=== PATIENT | female | born 1960 | race Caucasian/White ===

== ENCOUNTER 2023-05-18 01:34 | Observation (INO) ==
--- OUTSIDE RECORDS SUMMARY | 2023-05-18 01:40 | External Medical Summary | Continuity of Care Document ---
Author Name Unknown Organization [address] Address [address] [place], [place] [id number] Care Team Providers Care Information Technology Teacher Name Role Phone Patsy Sheikh Primary Care Physician [phone] Encounter [facility] [id number] Date(s): 12/17/22 - 12/17/[address] [place] [facility] [address] [address] [phone] Encounter Diagnosis Vaginal irritation(Discharge Diagnosis) - 12/17/22 Discharge Disposition: Home or Self Care Attending Physician: KEN Sheikh Tara Allergies, Adverse Reactions, Alerts No Known Medication Allergies Assessment and Plan Extracted from: Title:irritation Author:KEN Sheikh Tara Date: 1.Vaginal irritation Acute/Chronic: chronic Goal:Resolution/ control Status:stable/controlled Data: records/pt report Plan: Will try topical steroid. Also discussed using a vaginal lubricant. If this is not effective, we did discuss the use of vaginal estrogen cream. Discussed pros and cons. Not generally absorbed systemically. She will let me know. time spent reviewing chart, face to face visit, ordersand documentation:36 min Immunizations Given and Recorded Vaccine Date Status Refusal Reason zoster vaccine, inactivated 07/20/20 Given zoster vaccine, inactivated 1 05/11/20 Given influenza virus vaccine, inactivated 03/06/20 Give n influenza virus vaccine, inactivated 02/14/19 Cassius rded tetanus/diphtheria/pertuss, acel (Tdap) 10/03/08 R ecorded 1Result Comment: [email or web address] 02/21/22 Medications Calcium 600+D Start: 12/20/14 15:49:00, See Instructions, 1 tab po BID Start Date: 12/20/14 Status: Ordered ciclopirox 8% topical solution Start: 05/08/22 9:18:00 EST, See Instructions, Disp# 6.6 mL, Refills: 4, APPLY TOPICALLY DAILY FOR 24 WEEKS., Pharmacy: [id number] Start Date: 05/08/22 Status: Ordered clobetasol 0.05% topical ointment Start: 12/17/22 11:57:00 EDT, 1 appl, topical, bid, Disp# 60 g, Pharmacy: [id number] Start Date: 12/17/22 Status: Ordered fluocinolone 0.01% topical oil APPLY 1 APPLICATION TOPICALLY TWO TIMES DAILY FOR 14 DAYS Start Date: 11/06/22 Status: Ordered Ocuvite Lutein Start: 12/28/15 9:51:00, See Instructions, 1 tablet daily Start Date: 12/28/15 Status: Ordered Mental Status 12/17/22 Barriers to Learning one year None evide nt Mandatory Health Literacy Documentation Yes Health Literacy Communication Barriers N ever Primary Language Malian Problem List Condition Confirmation Course Effective Dates Status Health St atus Informant Nevus Confirmed Active Eczema Confirmed Active Inflamed seborrheic keratosis Confirmed Active Tinea unguium Confirmed Active Diagnosis Diagnosis Type Effective Dates Health Status Clinical Service Informant Vaginal irritation Discharge Diagnosis 12/17/22 Procedures Procedure Date Related Diagnosis Body Site Status Mammogram - screening 1 06/11/22 C ompleted Mammogram - screening 2 06/07/21 C ompleted Mammogram 3 06/01/20 Completed Mammogram - screening 4 05/19/19 C ompleted PAP test date 5 05/19/19 Completed Mammogram 6 05/17/18 Completed Mammogram - screening 7 03/27/17 C ompleted Colonoscopy 8, 9 04/14/16 Complete d Mammogram Right Diagnostic 10 04/07/16 Completed Mammogram 11 03/21/16 Completed Mammogram 12 03/15/15 Completed LASIK 09/2014 Completed Mammogram 13 01/06/14 Completed PAP test date 14 12/19/13 Complete d Ultrasound--left breast 15 12/22/12 Completed Colonoscopy 16 12/08/09 Completed Bone density scan 10/15/09 Complet ed X-ray of left foot 17 01/11/06 Com pleted Breast biopsy sample--right breast 18 Completed Hemorrhoidectomy 19 Compl eted 1There is no mammographic evidence of malignancy. A 1 year screening mammogram is recommended. (06/12/2023) 2There is no mammographic evidence of malignancy. A 1 year screening mammogram is recommended. 3bilateral digital screening mammogram tomosynthesis with synthetic 2d with Cad 06/01/2020 impression there is no mammographic evidence of malignancy. A one year screeing mammogram is recommended 06/02/2021 4Impression: There is no mammography evidence of malignancy. A 1 year screening mammogram is recommended (05/19/2020). The patient will receive written notification of the results. 5HPV not detected Negative for intraepithelia lesion or malignancy. Atrophic pattern, predominantly parabasal cells. 6IMPRESSION: ACR BI-RADS CATEGORY 1: NEGATIVE There is no mammographic evidence of malignancy. A 1 year screening mammogram is recommended. (05/18/19). 7Impression: There is no mammographic evidence of malignancy. A 1 year screening mammogram is recommended. The patient will receive written notification of the results. 8hyperplastic/inflammatory ( theese polyps do not turn into cancer nor do they increase your risk ofconcer, therefore, require only routine colon cancer screening every 10 years. Colonoscopy in 10 years for colon cancer screening. 9one 3mm polyp in the ascending colon, removed with a cold bx forceps. Resected and retrieved. 10Impression: The clustered punctate and amorphous microcalcifications in the right upper outer posterior breast are unchanged mammographically dating back to at least 2008 and likely stable active 2006 based on prior reports. There is no mammographic evidence of malignancy. Return to annual mammogram screening schedule is recommended. The patient has been verbally notified of the results. 11Cat 0- incomplete- needs additional images. Cluster in the right breast is indeterminate 12No mammographic evidence of malignancy. ! year screening mammogram is recommended. 13Negative for malignancy. 14Diagnosis: negative for intraepithelial lesion or malignancy Atrophy with inflammation (atrophic vaginitis. 15No sonographic evidence of malignancy. 16Due every 5 years. 17Acute comminuted transvers fracture through the distal phalanx of the left great toe. Considered anopen fracture. Bony fragments about the distal phalanx of the left 2nd toe, also most likely crush injury. 18done in 2008 for palpable mass 19Done in 1981 Vital Signs Most recent to oldest [Reference Range]: 1 Height 167.8 cm (12/17/22 11:23 AM) Patient Weight 63.4 kg (12/17/22 11:23 AM) Body Mass Index 22.52 kg/m2 (12/17/22 11:23 AM) Heart Rate 58 bpm (12/17/22 11:23 AM) Respiratory Rate 16 br/min (12/17/22 11:23 AM) Blood Pressure 100/64mmHg (12/17/22 11:23 AM) Cuff Pulse Pressure 36 mmHg (12/17/22 11:23 AM) Social History Social History Type Response Smoking Status Never smoked cigaret yaakov Sex Female Primary care Note * KEN Sheikh Tara: PERFORM Event Display: FCM Outpt Note Authored Date: [id number] Chief Complaint possible yeast infection that she has been cycling with the last couple of weeks (perinium area) itching, burning History of Present Illness For the last several weeks the pt has had itching/burning in the perineal region. She denies vaginal discharge. No recent abx. No urinary incontinence. Denies new soaps, lotions, detergents, topical products. Has not used any otc products. She does not have penetrating sexual intercourse due to discomfort. Review of Systems Constitutional: No fever, chills, sweats Pulmonary: No shortness of breath, dyspnea with exertion, cough, hemoptysis, wheezing, chest pain. Cardiovascular: No chest pain, palpitations, syncope, edema, cyanosis, claudication, orthopnea. Fingerprint Expert:as per HPI Physical Exam Vitals & Measurements HR:58(Monitored) RR:16 BP:100/64 SpO2:96% HT:167.8cm WT:63.400kg(Dosing) WT:63.4kg BMI:22.52 PHQ2 Data(Data Documented on:12/17/2022 11:23) Emotional health assessment NEGATIVE head- normocephalic Pulmonary- chest expansion symmetric CV (cardiovascular)- RRR Fingerprint Expert -Mild erythema at the base of the vaginal orifice. No vaginal discharge noted. Radiation Oncology Therapist Priti Easton LPN present. Neuro:Alert, Oriented. Assessment/Plan 1.Vaginal irritation Acute/Chronic: chronic Goal:Resolution/ control Status:stable/controlled Data: records/pt report Plan:Will try topical steroid. Also discussed using a vaginal lubricant. If this is not effective, we did discuss the use of vaginal estrogen cream. Discussed pros and cons. Not generally absorbed systemically. She will let me know. time spent reviewing chart, face to face visit, ordersand documentation:36 min Problem List/Past Medical History Ongoing Eczema Inflamed seborrheic keratosis Nevus Tinea unguium Historical Cerumen impaction Dyspareunia Palpitations Procedure/Surgical History Mammogram - screening (06/11/2022)Mammogram - screening (06/07/2021)Mammogram (06/01/2020)PAP test date (05/19/2019)Mammogram - screening (05/19/2019)Mammogram (05/17/2018)Mammogram - screening (03/27/2017)Colonoscopy (04/14/2016)Mammogram Right Diagnostic (04/07/2016)Mammogram (03/21/2016)Mammogram (03/15/2015)LASIK (09/2014)Mammogram (01/06/2014)PAP test date (12/19/2013)Ultrasound--left breast (12/22/2012)Colonoscopy (12/08/2009)Bone densityscan (10/15/2009)X-ray of left foot (01/11/2006)HemorrhoidectomyBreast biopsy sample--right breast Medications calcium-vitamin D(Calcium 600+D), See Instructions ciclopirox topical(ciclopirox 8% topical solution), See Instructions, 4 refills clobetasol topical(clobetasol 0.05% topical ointment), 1 appl, topical, bid fluocinolone topical(fluocinolone 0.01% topical oil) multivitamin with minerals(Ocuvite Lutein), See Instructions Allergies No Known Medication Allergies Social History Smoking Status Never smoked cigarettes Alcohol Use:Current Type:Beer, Wine Frequency:3-5 times per week Employment/School Status:Retired Home/Environment Lives with:Spouse Feels unsafe at home:No Substance Abuse - Denies Substance Abuse Tobacco - Denies Tobacco Use Family History Brain aneurysm: Mother. Glaucoma: Mother. Heart attack: Father. Hypertension...: Mother. Macular degeneration...: Mother. Thyroid disease: Mother. Health Status Family Member(s) Family Member(s) Relationship: Father, Age: Unknown Immunizations Vaccine Date Status zoster vaccine, inactivated 07/20/2020 Given zoster vaccine, inactivated 05/11/2020 Given Comments : [email or web address] 02/21/22 influenza virus vaccine, inactivated 03/06/2020 Given influenza virus vaccine, inactivated 02/14/2019 Recorded tetanus/diphtheria/pertuss, acel (Tdap) 10/03/2008 Recorded Recommendations Health Maintenance Pending(in the next year) OverDue Cervical Cancer Screening due05/18/22and every 3year Due Adult Influenza Vaccine due11/22/22and every 1year Adult COVID-19 Vaccination due12/17/22Unknown Frequency Adult Tdap/Td Vaccine due12/17/22Unknown Frequency Due In Future Body Mass Index not due until12/17/23and every 1year Satisfied(in the past 1 year) Satisfied Body Mass Index on12/17/22.Satisfied by FALGUNI Crespo Bobbi Electronic Signature on File Electronically Reviewed/Signed by: KEN Washington Author Signature Dt/Tm:12/17/2022 12:44 PM Department of Family Medicine TB Patient Care team information Care Team Personnel Name: KEN Sheikh Tara Position: Nurse Pract - Family Med Member Role: Primary Care Provider Address: Address: [address] [place] [address], [place] [address] Care Team Related Persons Name: CRISTINA MILLS Address: home [address] [place] [address], [place] [phone] Name: MARIBEL FITCH Address: home No Address Provided
--- OUTSIDE RECORDS SUMMARY | 2023-05-18 01:40 | External Medical Summary | Continuity of Care Document ---
Author Name Unknown Organization [address] Address [address] [place], [place] [id number] Care Team Providers Care Home Health Billing Specialist Name Role Phone Patsy Sheikh Primary Care Physician [phone] [id number] Date(s): 12/17/22 - 12/17/[address] [place] [facility] [address] [address] [phone] Encounter Diagnosis Vaginal irritation(Discharge Diagnosis) - 12/17/22 [...] APPLY TOPICALLY DAILY FOR 24 WEEKS., Pharmacy: [id number] Start Date: 05/08/22 Status: Ordered clobetasol 0.05% topical ointment Start: 12/17/22 11:57:00 EDT, 1 appl, topical, bid, Disp# 60 g, Pharmacy: [id number] Start Date: 12/17/22 Status: [...] Literacy Communication Barriers N ever Primary Language Vietnamese Problem List Condition Confirmation Course Effective Dates [...] Event Display: FCM Outpt Note Authored Date: [id number] Chief Complaint possible yeast infection that she [...] pain, palpitations, syncope, edema, cyanosis, claudication, orthopnea. Carbon Printer:as per HPI Physical Exam Vitals & Measurements HR:58(Monitored) RR:16 BP:100/64 SpO2:96% HT:167.8cm WT:63.400kg(Dosing) WT:63.4kg BMI:22.52 PHQ2 Data(Data Documented on:12/17/2022 11:23) Emotional health assessment NEGATIVE head- normocephalic Pulmonary- chest expansion symmetric CV (cardiovascular)- RRR Carbon Printer -Mild erythema at the base of the vaginal orifice. No vaginal discharge noted. Independent Contractor Priti Easton LPN present. Neuro:Alert, Oriented. Assessment/Plan [...] Member Role: Primary Care Provider Address: Address: [address] [place] [address], [place] [address] Care Team Related Persons Name: CRISTINA MILLS Address: home [address] [place] [address], [place] [phone] Name: MARIBEL FITCH Address: home No Address Provided
[2023-05-18 02:28] LABS: Appearance Urine Clear (Clear); Bacteria Urine Automated Negative (Negative); Bilirubin Urine Negative (Negative); Blood Urine 1+ (Negative); Cast Urine Automated 0 /lpf (0-5); Color Urine Yellow; Glucose Urine UA Negative (Negative); Ketones Urine Negative (Negative); Leukocyte Esterase Urine 2+ (Negative); Nitrite Urine Negative (Negative); Protein Urine Negative (Negative); Specific Gravity Urine 1.012 (1.000-1.030); Urobilinogen Urine Negative (Negative); pH Urine 7.5 (4.5-7.5)
[2023-05-18 02:30] LABS: Basophils # (auto) 0.04 K/uL (0.00-0.20); Basophils % (auto) 0.4 %; Eosinophils # (auto) 0.08 K/uL (0.00-0.50); Eosinophils % (auto) 0.7 %; Hemoglobin 14.5 g/dl (12.0-16.0); Immature Granulocytes # (auto) 0.03 K/uL (0.01-0.20); Immature Granulocytes % (auto) 0.3 %; Lymphocytes # (auto) 1.41 K/uL (1.20-3.40); Lymphocytes % (auto) 12.5 %; Mean Corpuscular Hemoglobin 31.9 pg (25.0-34.0); Mean Corpuscular Volume 96.9 fL (80.0-100.0); Mean Platelet Volume 11.8 fL (9.4-12.4); Monocytes # (auto) 0.92 K/uL (0.11-0.59); Monocytes % (auto) 8.1 %; Neutrophils # (auto) 8.81 K/uL (1.40-6.50); Platelet Count 253 K/uL (130-400); RDW Coefficient of Variation 12.4 % (11.5-14.5); RDW Standard Deviation 44.4 fL (36.4-46.3); Red Blood Count 4.54 M/uL (4.20-5.40); White Blood Count 11.29 K/ul (4.8-10.8)
[2023-05-18 02:40] LABS: Pregnancy Test, Serum Negative (Negative)
[2023-05-18 02:45] LABS: Albumin Globulin Ratio 1.5 (0.9-2); Albumin Level 4.6 gm/dl (3.4-5.0); BUN Creatinine Ratio 17.5 (10-20); Bilirubin,Total 0.4 mg/dl (0.2-1.0); Calcium 9.4 mg/dl (8.6-10.3); Creatinine Clr Calc Pharmacy 69.8 ml/min; Est GFR (African American) 90.9 ml/min; Est GFR (Non-African American) 78.5 ml/min; Potassium 3.8 mmol/L (3.5-5.1); Total Protein 7.6 gm/dl (6.0-8.3)
[2023-05-18] MEDS ORDERED: OPTIRAY 320 500ml IV ONE (03:26)
--- NOTE | 2023-05-18 04:21 | CT Scan Report ---
Exam(s): CT ABDOMEN + PELVIS With Contrast IV Amt: 89 ml opti 320 EXAM: CT Abdomen and Pelvis With Intravenous Contrast CLINICAL HISTORY: Reason for exam: eval for appy. TECHNIQUE: Axial computed tomography images of the abdomen and pelvis with intravenous contrast. CTDI is 12.47 mGy and DLP is 591.14 mGy-cm. Automated exposure control was utilized for the study. A dose lowering technique was utilized adhering to the principles of ALARA. CONTRAST: Patient received 89 ml opti 320 of IV contrast COMPARISON: No relevant prior studies available. FINDINGS: Lung bases: Unremarkable. No mass. No consolidation. ABDOMEN: Liver: Low-attenuation area in the right hepatic lobe measures 2.5 x 4. 7 cm. Recommend nonemergent abdominal MRI correlation. Gallbladder and bile ducts: Unremarkable. No calcified stones. No ductal dilation. Pancreas: Unremarkable. No mass. No ductal dilation. Spleen: Unremarkable. No splenomegaly. Adrenals: Unremarkable. No mass. Kidneys and ureters: Unremarkable. No hydronephrosis or delayed nephrogram. Stomach and bowel: Moderate fecal retention, correlate for constipation. No small bowel obstruction. No free air. No mucosal thickening. PELVIS: Appendix: Positive for appendicitis, consisting of a distended appendix measuring up to 13 mm with mild periappendiceal fat stranding. No perforation or abscess. Bladder: Unremarkable. No mass. Reproductive: Calcified uterine fibroids measuring up to 2.4 cm. ABDOMEN and PELVIS: Intraperitoneal space: See above. Bones/joints: Degenerative changes of the spine. No acute fracture. No dislocation. Soft tissues: Unremarkable. Vasculature: Atherosclerotic changes of the aorta. No abdominal aortic aneurysm. Lymph nodes: Unremarkable. No enlarged lymph nodes. IMPRESSION: 1. Positive for appendicitis, consisting of a distended appendix measuring up to 13 mm with mild periappendiceal fat stranding. No perforation or abscess. 2. No hydronephrosis or delayed nephrogram. 3. Low-attenuation area in the right hepatic lobe measures 2.5 x 4.7 cm. Recommend nonemergent abdominal MRI correlation. 4. Moderate fecal retention, correlate for constipation. No small bowel obstruction. No free air. Communications: Verify Receipt Electronically signed by: Pradip Mitchell MD 05/18/23 04:20 AM
--- NOTE | 2023-05-18 04:53 | Emergency Department Note ---
Impression & Plan Acute appendicitis To the OR with Dr. Marion ED Provider Note NAME: ANGELY FITCH AGE: 62 SEX: Female INFORMANT: Patient ED PROVIDER(S): Brook Becker DO CHIEF COMPLAINT: Right lower quadrant abdominal pain PLAN: Disposition: Admit to Dr. Marion MEDICAL DECISION MAKING: This is a 62-year-old female patient who presents to the emergency department with right lower quadrant abdominal pain and nausea since 5 PM last evening. The pain worsened throughout the evening to the point she tried to sleep and was unable to. In the emergency department, laboratory studies revealed a mild leukocytosis with a white count of 11.2. H&H were stable. Renal function and electrolytes were normal. Urinalysis did show 1+ blood and 2+ leukocyte esterase with 5-10 white blood cells and red blood cells. The patient did have exquisite tenderness to palpation in the right lower quadrant. She went for CT scan of the abdomen/pelvis which showed acute appendicitis. The patient declined wanting anything for pain. Discussed the case with Dr. Marion who will take her to the OR. Care/management discussed with: Dr. Marion-General surgery Triage Nursing notes: Reviewed and agree with them. Vital Signs: reviewed and unremarkable Chronic Medical/Social Conditions affecting care: None Differential Diagnosis: Appendicitis, UTI, diverticulitis Diagnostics, independently interpreted by me: Cardiac Monitoring: Normal sinus rhythm at a rate of 76 Imaging studies: CT scan of the abdomen/pelvis: See stat rad HPI: 62 year old Female arrives for evaluation of right lower quadrant pain. Patient developed right lower quadrant pain and nausea around 5 PM this evening. She tried having a bowel movement around 10:00 before bed but got no relief. Patient then went to sleep but noted the pain seemed to increase and came to the emergency department for evaluation. PAST MEDICAL HISTORY: None, PAST SURGICAL HISTORY: None, SOCIAL HISTORY: Lives with her , HOME MEDICATIONS: See list ALLERGIES: None VITALS: See Below PHYSICAL EXAMINATION: HEENT: Head - normocephalic and atraumatic. Pupils are equal, round, and reactive to light. Extraocular eye muscles are intact, and sclera are anicteric. Nose - moist nasal mucosa without discharge. Mouth - moist buccal mucosa. Oropharynx is nonerythematous and there is no tonsillar exudate or edema noted. Neck: Supple; no cervical lymphadenopathy Heart: Regular rate and rhythm. There is a normal S1 and S2 with no murmurs, clicks, or gallops appreciated. Lungs: Clear to auscultation bilaterally with no wheezes, rales, or rhonchi. Abdomen: Soft, exquisite tenderness to palpation in the right lower quadrant, nondistended, with good bowel sounds. There are no palpable pulsatile masses or hepatosplenomegaly. There is no guarding, rigidity, or rebound noted. Extremities: No evidence of cyanosis, clubbing, or edema. There are easily palpable peripheral pulses. Skin: warm and dry with good turgor and no rashes. Emergency department course: The patient was evaluated in room C6. A complete history and physical was performed. An order was placed for continuous cardiac monitoring. The patient was in a normal sinus rhythm at a rate of 76. An IV lock was initiated and labs were drawn as above. The patient went for CT scan of the abdomen/pelvis. She declined wanting anything for pain. Reviewed the results of the CT scan with the patient and her . I discussed the case with Dr. Marion. Past Med/Surg History Medical History (Updated 05/18/23 @ 05:25 by Lewis Marion MD) Acute appendicitis Social History Smoking Status: Never smoker Preferred Language: Wol[place] Feels Safe at Home: Yes Allergies Allergies Allergy/AdvReac Type Severity Reaction Status Date / Time No Known Allergies Allergy Mild Verified 05/18/23 01:51 Home Meds Home Medications Medication Instructions Recorded Confirmed calcium carbonate 600 mg-vitamin 1 tab PO DAILY 05/18/23 05/18/23 D3 10 mcg (400 unit) tablet (Calcium 600 + D(3)) uznbgrlr-jdv- 250 mg-dha 90 1 cap PO DAILY 05/18/23 05/18/23 mg-epa 160 tg-zgrl-tuob-zeax capsule (Ocuvite Adult 50 Plus) Results & Data (ED) Vital Signs Vital Signs - 24 hr 05/18/23 01:38 05/18/23 02:24 05/18/23 03:37 Temperature 36.6 C Temperature Source Temporal Artery Scan Pulse Rate 82 71 Pulse Rate [Apical] 74 Respiratory Rate 16 16 Respiratory Effort / Characteristics Respiratory Depth Respiratory Pattern Blood Pressure 119/80 Blood Pressure [Right Arm] 122/75 Blood Pressure Mean 93 Blood Pressure Mean [Right Arm] 90 Pulse Oximetry 100 100 Oxygen Delivery Method Room Air Room Air Sepsis Recent Fever Within 48 Hours No Sepsis New/Unexplained Change in Mental Status No Sepsis Action Taken by Nursing No Action Required 05/18/23 04:00 Temperature Temperature Source Pulse Rate Pulse Rate [Apical] 81 Respiratory Rate 16 Respiratory Effort / Characteristics Non-Labored Spontaneous Respiratory Depth Normal Respiratory Pattern Regular Blood Pressure Blood Pressure [Right Arm] 126/77 Blood Pressure Mean Blood Pressure Mean [Right Arm] 93 Pulse Oximetry 99 Oxygen Delivery Method Room Air Sepsis Recent Fever Within 48 Hours Sepsis New/Unexplained Change in Mental Status Sepsis Action Taken by Nursing Laboratory Data 05/18/23 01:55 05/18/23 01:55 Lab Results 05/18/23 Range/Units 01:55 WBC 11.29 H (4.8-10.8) K/ul RBC 4.54 (4.20-5.40) M/uL Hgb 14.5 (12.0-16.0) g/dl Hct 44.0 (37.0-47.0) % MCV 96.9 (80.0-100.0) fL MCH 31.9 (25.0-34.0) pg MCHC 33.0 (32.0-36.0) g/dL RDW Std Deviation 44.4 (36.4-46.3) fL RDW Coeff of Lars 12.4 (11.5-14.5) % Plt Count 253 (130-400) K/uL MPV 11.8 (9.4-12.4) fL Immature Gran % (Auto) 0.3 % Neut % (Auto) 78.0 % Lymph % (Auto) 12.5 % [place] % (Auto) 8.1 % Eos % (Auto) 0.7 % Baso % (Auto) 0.4 % Neut # (Auto) 8.81 H (1.40-6.50) K/uL Lymph # (Auto) 1.41 (1.20-3.40) K/uL [place] # (Auto) 0.92 H (0.11-0.59) K/uL Eos # (Auto) 0.08 (0.00-0.50) K/uL Baso # (Auto) 0.04 (0.00-0.20) K/uL Immature Gran # (Auto) 0.03 (0.01-0.20) K/uL Sodium 141 (136-145) mmol/L Potassium 3.8 (3.5-5.1) mmol/L Chloride 106 (98-107) mmol/L Carbon Dioxide 29 (21-32) mmol/L Anion Gap 6 (3-11) BUN 14 (6-23) mg/dl Creatinine 0.80 (0.6-1.2) mg/dl Est Cr Clr Drug Dosing 69.8 ml/min Est GFR ( Amer) 90.9 ml/min Est GFR (Non-Af Amer) 78.5 ml/min BUN/Creatinine Ratio 17.5 (10-20) Glucose 92 (70-99(Fasting)) mg/dl Calcium 9.4 (8.6-10.3) mg/dl Total Bilirubin 0.4 (0.2-1.0) mg/dl AST 19 (13-39) U/L ALT 14 (7-52) U/L Alkaline Phosphatase 68 (34-104) U/L Total Protein 7.6 (6.0-8.3) gm/dl Albumin 4.6 (3.4-5.0) gm/dl Globulin 3.0 (2.5-4.0) gm/dl Albumin/Globulin Ratio 1.5 (0.9-2) Lipase 24 (11-82) U/L HCG, Qual Negative (Negative) Urine Color Yellow Urine Appearance Clear (Clear) Urine pH 7.5 (4.5-7.5) Ur Specific [place] 1.012 (1.000-1.030) Urine Protein Negative (Negative) Urine Glucose (UA) Negative (Negative) Urine Ketones Negative (Negative) Urine Blood 1+ H (Negative) Urine Nitrite Negative (Negative) Urine Bilirubin Negative (Negative) Urine Urobilinogen Negative (Negative) Ur Leukocyte Esterase 2+ H (Negative) Urine WBC (Auto) 5-10 H (0-5) /hpf Urine RBC (Auto) 5-10 H (0-4) /hpf U Hyaline Cast (Auto) 0 (0-5) /lpf U Epithel Cells (Auto) 10-20 H (0-5) /lpf Urine Bacteria (Auto) Negative (Negative) Administered Medications Discontinued Medications Ioversol (Optiray 320 500ml) 89 ml IV ONCE ONE Stop: 05/18/23 03:27 Last Admin: 05/18/23 03:26 Dose: 89 ml Documented By: PLW Imaging Data Radiologist's Impression: Abdomen/Pelvis CT 05/18/23 02:55 CR Exam(s): CT ABDOMEN + PELVIS With Contrast IV Amt: 89 ml opti 320 EXAM: CT Abdomen and Pelvis With Intravenous Contrast CLINICAL HISTORY: Reason for exam: eval for appy. TECHNIQUE: Axial computed tomography images of the abdomen and pelvis with intravenous contrast. CTDI is 12.47 mGy and DLP is 591.14 mGy-cm. Automated exposure control was utilized for the study. A dose lowering technique was utilized adhering to the principles of ALARA. CONTRAST: Patient received 89 ml opti 320 of IV contrast COMPARISON: No relevant prior studies available. FINDINGS: Lung bases: Unremarkable. No mass. No consolidation. ABDOMEN: Liver: Low-attenuation area in the right hepatic lobe measures 2.5 x 4. 7 cm. Recommend nonemergent abdominal MRI correlation. Gallbladder and bile ducts: Unremarkable. No calcified stones. No ductal dilation. Pancreas: Unremarkable. No mass. No ductal dilation. Spleen: Unremarkable. No splenomegaly. Adrenals: Unremarkable. No mass. Kidneys and ureters: Unremarkable. No hydronephrosis or delayed nephrogram. Stomach and bowel: Moderate fecal retention, correlate for constipation. No small bowel obstruction. No free air. No mucosal thickening. PELVIS: Appendix: Positive for appendicitis, consisting of a distended appendix measuring up to 13 mm with mild periappendiceal fat stranding. No perforation or abscess. Bladder: Unremarkable. No mass. Reproductive: Calcified uterine fibroids measuring up to 2.4 cm. ABDOMEN and PELVIS: Intraperitoneal space: See above. Bones/joints: Degenerative changes of the spine. No acute fracture. No dislocation. Soft tissues: Unremarkable. Vasculature: Atherosclerotic changes of the aorta. No abdominal aortic aneurysm. Lymph nodes: Unremarkable. No enlarged lymph nodes. IMPRESSION: 1. Positive for appendicitis, consisting of a distended appendix measuring up to 13 mm with mild periappendiceal fat stranding. No perforation or abscess. 2. No hydronephrosis or delayed nephrogram. 3. Low-attenuation area in the right hepatic lobe measures 2.5 x 4.7 cm. Recommend nonemergent abdominal MRI correlation. 4. Moderate fecal retention, correlate for constipation. No small bowel obstruction. No free air. Communications: Verify Receipt Electronically signed by: Pradip Mitchell MD 05/18/23 04:20 AM Discharge Plan Visit Data Chief Complaint: Abdominal Pain ED Provider: Brook Becker Discharge Problem: Acute appendicitis Discharge Instructions Interventions: ED Discharge Assessment Last Done: 05/18/23 05:25
[2023-05-18] MEDS ORDERED: fentaNYL citrate PF 100 MCG/2 ML VIAL IV PRN (05:03)
[2023-05-18] MEDS ORDERED: ATROPINE SULFATE 0.1 MG/ML 10ML SYR IV PRN (05:03)
[2023-05-18] MEDS ORDERED: ePHEDrine sulfate 50 MG/ML AMP IV PRN (05:03)
[2023-05-18] MEDS ORDERED: ONDANSETRON INJ 2 MG/ML 2 ML VIAL IV PRN (05:03)
--- NOTE | 2023-05-18 05:03 | Anesthesiology Consultation ---
Date of Service May 18, 2023 Assessment & Plan Chart Review Chart Review: Acceptable Risk for Surgery Consults Requested none History Surgery Operation Date: 05/18/23 05:30 Proposed Procedures p Laparoscopic Appendectomy - Lewis Marion MD Height/Weight Height: 5 ft 7 in Weight: 61.4 kg Allergies Allergy/AdvReac Type Severity Reaction Status Date / Time No Known Allergies Allergy Mild Verified 05/18/23 01:51 Medications Home Medications Medication Instructions Recorded Confirmed Last Taken calcium carbonate 600 mg-vitamin 1 tab PO DAILY 05/18/23 05/18/23 05/17/23 D3 10 mcg (400 unit) tablet (Calcium 600 + D(3)) sllldbyi-lpf-fekkh2 250 mg-dha 90 1 cap PO DAILY 05/18/23 05/18/23 05/17/23 mg-epa 160 bq-iuan-nvzk-zeax capsule (Ocuvite Adult 50 Plus) Social History Smoking Status: Never smoker Physical Exam Vital Signs Last Vital Signs Temp 36.6 C 05/18/23 01:38 Pulse 81 05/18/23 04:00 Resp 16 05/18/23 04:00 BP 126/77 05/18/23 04:00 Pulse Ox 99 05/18/23 04:00 O2 Del Method Room Air 05/18/23 04:00 Testing Laboratory Results 05/18/23 01:55 05/18/23 01:55 Urine Color Yellow 05/18/23 01:55 Urine Appearance Clear (Clear) 05/18/23 01:55 Urine pH 7.5 (4.5-7.5) 05/18/23 01:55 Ur Specific [place] 1.012 (1.000-1.030) 05/18/23 01:55 Urine Protein Negative (Negative) 05/18/23 01:55 Urine Glucose (UA) Negative (Negative) 05/18/23 01:55 Urine Ketones Negative (Negative) 05/18/23 01:55 Urine Nitrite Negative (Negative) 05/18/23 01:55 Ur Leukocyte Esterase 2+ (Negative) H 05/18/23 01:55 Urine WBC (Auto) 5-10 /hpf (0-5) H 05/18/23 01:55 Urine RBC (Auto) 5-10 /hpf (0-4) H 05/18/23 01:55 U Hyaline Cast (Auto) 0 /lpf (0-5) 05/18/23 01:55 U Epithel Cells (Auto) 10-20 /lpf (0-5) H 05/18/23 01:55 Urine Bacteria (Auto) Negative (Negative) 05/18/23 01:55
--- NOTE | 2023-05-18 05:17 | Surgery Consultation ---
Date of Consultation May 18, 2023 Assessment & Plan (1) Acute appendicitis: Assessment: Patient is 62 years old female who presented to ED with 12-hour history right lower quadrant pain with nausea. CT scan diagnosis acute appendicitis. Plan: Based on patient history labs and the CT scan finding. I recommend to do a laparoscopy appendectomy possible open I did talk to patient about the benefit the risk and alternate of the procedure I indicated the risks may include but not limited such as a bleeding, infection, injury other organs, abscess, incisional hernia. patient understand, she agreed to proceed with surgery. patient signed informed consent. I answers all question. Pre-op IV antibiotic. History of Present Illness Reason for Consultation: Acute appendicitis Requesting Physician: Brook Cho History of Present Illness CC: Right lower quadrant pain HPI: Patient is a 62 years old female who presented to ED with a 12-hour history right lower quadrant pain visit nausea without vomiting. The pain stared around 5 PM yesterday. the pain about 5/10, dull pain. The pain was getting worse early this morning. Patient denies any fever or chills. No dysuria. No chest pain. Patient had a CT scan diagnosis of acute appendicitis. Allergies Allergy/AdvReac Type Severity Reaction Status Date / Time No Known Allergies Allergy Mild Verified 05/18/23 01:51 Home Medications Medication Instructions Recorded Confirmed Type calcium carbonate 600 mg-vitamin 1 tab PO DAILY 05/18/23 05/18/23 History D3 10 mcg (400 unit) tablet (Calcium 600 + D(3)) dsqfcitc-izh- 250 mg-dha 90 1 cap PO DAILY 05/18/23 05/18/23 History mg-epa 160 vz-aqbe-juon-zeax capsule (Ocuvite Adult 50 Plus) Patient History Medical History (Updated 05/18/23 @ 05:25 by Lewis Marion MD) Acute appendicitis Social History Smoking Status: Never smoker Preferred Language: [place] Feels Safe at Home: Yes Review of Systems Constitutional: as per Subjective / HPI Eyes: as per Subjective / HPI Respiratory: as per Subjective / HPI Cardiovascular: as per Subjective / HPI Gastrointestinal: as per Subjective / HPI Genitourinary: as per Subjective / HPI Neurologic: as per Subjective / HPI Psychiatric: as per Subjective / HPI Endocrine: as per Subjective / HPI Hematologic / Lymphatic: as per Subjective / HPI Physical Exam Constitutional: WD/WN, vitals as above Eyes: PERRL, conjunctivae normal, anicteric sclerae Neck: trachea midline, no thyromegaly Respiratory: normal respiratory effort, lungs clear to auscultation Cardiovascular: RRR, no murmur, no edema Gastrointestinal (Abdomen): soft, tenderness at RLQ, no rebound pain, no distend, BS +. Musculoskeletal: no cyanosis or clubbing, extremities motor strength 5/5 Neurologic: patellar DTR's 2+ bilat, sensation intact Psychiatric: A+Ox3, euthymic affect Results & Data Vital Signs (Past 12 Hours) Vital Signs Temp Pulse Pulse Resp BP BP Pulse Ox 05/18/23 04:00 81 16 126/77 99 05/18/23 03:37 74 16 122/75 100 05/18/23 02:24 71 05/18/23 01:38 36.6 C 82 16 119/80 100 O2 Del Method 05/18/23 04:00 Room Air 05/18/23 03:37 Room Air 05/18/23 02:24 05/18/23 01:38 Room Air Laboratory Results Lab Results 05/18/23 Range/Units 01:55 WBC 11.29 H (4.8-10.8) K/ul RBC 4.54 (4.20-5.40) M/uL Hgb 14.5 (12.0-16.0) g/dl Hct 44.0 (37.0-47.0) % MCV 96.9 (80.0-100.0) fL MCH 31.9 (25.0-34.0) pg MCHC 33.0 (32.0-36.0) g/dL RDW Std Deviation 44.4 (36.4-46.3) fL RDW Coeff of [place] 12.4 (11.5-14.5) % Plt Count 253 (130-400) K/uL MPV 11.8 (9.4-12.4) fL Immature Gran % (Auto) 0.3 % Neut % (Auto) 78.0 % Lymph % (Auto) 12.5 % [place] % (Auto) 8.1 % Eos % (Auto) 0.7 % Baso % (Auto) 0.4 % Neut # (Auto) 8.81 H (1.40-6.50) K/uL Lymph # (Auto) 1.41 (1.20-3.40) K/uL [place] # (Auto) 0.92 H (0.11-0.59) K/uL Eos # (Auto) 0.08 (0.00-0.50) K/uL Baso # (Auto) 0.04 (0.00-0.20) K/uL Immature Gran # (Auto) 0.03 (0.01-0.20) K/uL Sodium 141 (136-145) mmol/L Potassium 3.8 (3.5-5.1) mmol/L Chloride 106 (98-107) mmol/L Carbon Dioxide 29 (21-32) mmol/L Anion Gap 6 (3-11) BUN 14 (6-23) mg/dl Creatinine 0.80 (0.6-1.2) mg/dl Est Cr Clr Drug Dosing 69.8 ml/min Est GFR ( Amer) 90.9 ml/min Est GFR (Non-Af Amer) 78.5 ml/min BUN/Creatinine Ratio 17.5 (10-20) Glucose 92 (70-99(Fasting)) mg/dl Calcium 9.4 (8.6-10.3) mg/dl Total Bilirubin 0.4 (0.2-1.0) mg/dl AST 19 (13-39) U/L ALT 14 (7-52) U/L Alkaline Phosphatase 68 (34-104) U/L Total Protein 7.6 (6.0-8.3) gm/dl Albumin 4.6 (3.4-5.0) gm/dl Globulin 3.0 (2.5-4.0) gm/dl Albumin/Globulin Ratio 1.5 (0.9-2) Lipase 24 (11-82) U/L HCG, Qual Negative (Negative) Urine Color Yellow Urine Appearance Clear (Clear) Urine pH 7.5 (4.5-7.5) Ur Specific [place] 1.012 (1.000-1.030) Urine Protein Negative (Negative) Urine Glucose (UA) Negative (Negative) Urine Ketones Negative (Negative) Urine Blood 1+ H (Negative) Urine Nitrite Negative (Negative) Urine Bilirubin Negative (Negative) Urine Urobilinogen Negative (Negative) Ur Leukocyte Esterase 2+ H (Negative) Urine WBC (Auto) 5-10 H (0-5) /hpf Urine RBC (Auto) 5-10 H (0-4) /hpf U Hyaline Cast (Auto) 0 (0-5) /lpf U Epithel Cells (Auto) 10-20 H (0-5) /lpf Urine Bacteria (Auto) Negative (Negative) Diagnostic Findings ADDENDUM ADDENDUM: 05/18/23 04:27 Verify Receipt Verified receipt with SANTHOSH Bacon on 05/18 04:27 (-05:00) Electronically signed by: Pradip Mitchell MD Electronically signed by: Pradip Mitchell MD 05/18/23 04:20 AM ADDENDUM END Exam(s): CT ABDOMEN + PELVIS With Contrast IV Amt: 89 ml opti 320 EXAM: CT Abdomen and Pelvis With Intravenous Contrast CLINICAL HISTORY: Reason for exam: eval for appy. TECHNIQUE: Axial computed tomography images of the abdomen and pelvis with intravenous contrast. CTDI is 12.47 mGy and DLP is 591.14 mGy-cm. Automated exposure control was utilized for the study. A dose lowering technique was utilized adhering to the principles of ALARA. CONTRAST: Patient received 89 ml opti 320 of IV contrast COMPARISON: No relevant prior studies available. FINDINGS: Lung bases: Unremarkable. No mass. No consolidation. ABDOMEN: Liver: Low-attenuation area in the right hepatic lobe measures 2.5 x 4. 7 cm. Recommend nonemergent abdominal MRI correlation. Gallbladder and bile ducts: Unremarkable. No calcified stones. No ductal dilation. Pancreas: Unremarkable. No mass. No ductal dilation. Spleen: Unremarkable. No splenomegaly. Adrenals: Unremarkable. No mass. Kidneys and ureters: Unremarkable. No hydronephrosis or delayed nephrogram. Stomach and bowel: Moderate fecal retention, correlate for constipation. No small bowel obstruction. No free air. No mucosal thickening. PELVIS: Appendix: Positive for appendicitis, consisting of a distended appendix measuring up to 13 mm with mild periappendiceal fat stranding. No perforation or abscess. Bladder: Unremarkable. No mass. Reproductive: Calcified uterine fibroids measuring up to 2.4 cm. ABDOMEN and PELVIS: Intraperitoneal space: See above. Bones/joints: Degenerative changes of the spine. No acute fracture. No dislocation. Soft tissues: Unremarkable. Vasculature: Atherosclerotic changes of the aorta. No abdominal aortic aneurysm. Lymph nodes: Unremarkable. No enlarged lymph nodes. IMPRESSION: 1. Positive for appendicitis, consisting of a distended appendix measuring up to 13 mm with mild periappendiceal fat stranding. No perforation or abscess. 2. No hydronephrosis or delayed nephrogram. 3. Low-attenuation area in the right hepatic lobe measures 2.5 x 4.7 cm. Recommend nonemergent abdominal MRI correlation. 4. Moderate fecal retention, correlate for constipation. No small bowel obstruction. No free air. Communications: Verify Receipt Electronically signed by: Pradip Mitchell MD 05/18/23 04:20 AM Dictated: 05/18/23419 Transcribed: 05/18/23419
[2023-05-18] MEDS ORDERED: cefOXitin 2,000 MG/60 ML BAG IV STA (05:29)
--- NOTE | 2023-05-18 05:29 | History & Physical Bridge Note ---
Date of Service May 18, 2023 History & Physical Bridge Note I have examined the patient, reviewed the History & Physical and in the interval since the performance of the History & Physical I have noted the following changes of clinical significance: no changes noted
[2023-05-18] MEDS ORDERED: PROPOFOL IV EMULSION 10 MG/ML 20 ML VIAL IV ONE ×2 (05:41)
[2023-05-18] MEDS ORDERED: MIDAZOLAM HCL 1 MG/ML 2ML VIAL ONE (05:41)
[2023-05-18] MEDS ORDERED: fentaNYL citrate PF 100 MCG/2 ML VIAL ONE (05:41)
[2023-05-18] MEDS ORDERED: SUGAMMADEX SODIUM 200 MG/2 ML VIAL IV ONE (05:41)
[2023-05-18] MEDS ORDERED: LIDOCAINE 2% 2 ML VIAL/AMP(20MG/ML) INFIL ONE (05:41)
[2023-05-18] MEDS ORDERED: ONDANSETRON INJ 2 MG/ML 2 ML VIAL ONE (05:42)
[2023-05-18] MEDS ORDERED: DEXAMETHASONE SOD INJ 4 MG/ML VIAL ONE (05:42)
[2023-05-18] MEDS ORDERED: ROCURONIUM BROMIDE 10 MG/ML 5 ML VIAL IV ONE (05:42)
[2023-05-18] MEDS ORDERED: SUCCINYLCHOLINE CHLORIDE 20 MG/ML 10 ML VIAL IV ONE (05:47)
[2023-05-18] MEDS ORDERED: LIDOCAINE 1% LOCAL 20 ML VIAL ONE (06:07)
[2023-05-18] MEDS ORDERED: BUPIVACAINE 0.5 % 5 MG/1 ML MPF 30ML VIAL ONE (06:07)
--- NOTE | 2023-05-18 07:14 | Post Operative Brief Note ---
Immediate Post Op Note v1 Date of Surgery May 18, 2023 Pre & Post Diagnosis Operation Date: 05/18/23 05:30 Pre-Op Diagnosis: Acute Appendicitis Post-Op Diagnosis: Acute Appendicitis I identified the patient and participated in the time-out.: Yes Procedure Operation Date: 05/18/23 05:30 Actual Procedures p Laparoscopic Appendectomy(Not Applicable) - Lewis Marion MD Surgeon Lewis Marion MD Cytopathologist lighting technician Estimated Blood Loss 10 Findings Consistent with Post-Op Diagnosis acute appendicitis Fluids 600ml Specimens appendix Anesthesia Type General Complications none Disposition Accompanied Patient To Recovery: Yes
[2023-05-18] MEDS ORDERED: ondansetron HCL 6 MG in DEXTROSE 5% 50 ML IV PRN (07:18)
[2023-05-18] MEDS ORDERED: oxyCODONE/ACETAMINOPHEN 5mg/325mg TAB PO PRN (07:18)
[2023-05-18] MEDS ORDERED: HYDROmorphone INJ 0.5 MG/0.5 ML SYR IV PRN (07:18)
[2023-05-18] MEDS ORDERED: cefOXitin 1,000 MG in DEXTROSE 5 % MINI-B 50 ML IV SCH (07:30)
--- NOTE | 2023-05-18 07:55 | Anesthesiology Progress Note ---
Date of Service May 18, 2023 Anesthesia Post Procedure Vital Signs Vital Signs: Temp Pulse Pulse Resp BP BP Pulse Ox 05/18/23 07:46 36.7 C 78 18 115/67 97 05/18/23 07:36 36.9 C 78 20 117/68 96 05/18/23 07:26 36.9 C 88 20 119/68 100 05/18/23 04:00 81 16 126/77 99 05/18/23 03:37 74 16 122/75 100 05/18/23 02:24 71 05/18/23 01:38 36.6 C 82 16 119/80 100 O2 Del Method 05/18/23 07:46 Room Air 05/18/23 07:36 Room Air 05/18/23 07:26 Room Air 05/18/23 04:00 Room Air 05/18/23 03:37 Room Air 05/18/23 02:24 05/18/23 01:38 Room Air Transfer of Care Handoff Completed per policy Notes Mental Status: alert / awake / arousable Patient Amnestic to Procedure: Yes Nausea / Vomiting: adequately controlled Pain: adequately controlled Airway Patency, RR, SpO2: stable & adequate BP & HR: stable & adequate Hydration State: stable & adequate Anesthetic Complications: no major complications apparent and Pt Satisfied with anesthetic care
[2023-05-18] MEDS: LACTATED RINGER'S 1,000 ML IV SCH ×2 (09:42→21:24)
[2023-05-18] MEDS: cefOXitin 2,000 MG in DEXTROSE 5 % MINI-B 50 ML IV SCH ×3 (09:43→20:05)
--- NOTE | 2023-05-18 10:32 | Operative Report ---
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 Had a CT scan diagnosis of acute appendicitis. I recommend to do a laparoscopy appendectomy possible open. I did talk to patient about the benefit the risk and alternate of the procedure. I indicated the risks may include but not limited such as bleeding, infection, injury other organs, abscess, incisional hernia. she understood, she agreed with this procedure. She signed informed consent. I answered all questions. Description of Procedure After we identified patient to verify procedure. We brought patient to the OR. Put the patient on the supine position on the OR table. Patient received a SCD on bilateral legs to prevent DVT. Also patient received 2 gram cefoxitin IV for prophylactic antibiotic. Patient received general anesthesia without difficulty. pt had Julian catheter insertion to drainage urine. The abdomen was propped and dropped in routine sterile fashion. After timeout. I injections of local anesthesia by using 1% lidocaine mixed with 0.5% Marcaine just above the umbilical area. I make a small incisions as above umbilical, open fascia and peritoneum under direct vision. put The Capellan trocar in. Connected to CO2 to create pneumoperitoneum, the flow rate is 6 L/min. Pressure no more than 14 mmHg. Once get nice pneumoperitoneum. Put a scopy in to take look around the abdomen. Significant inflammation on the right lower quadrant area. then we put other two 5 mm trocars on the left lower quadrant area. We used a grasper to to hold cecum area. We found the patient had enlarge appendix with inflammation on appendix, which confirm diagnosis acute appendicitis. We mobilized the appendix by using a harmonic to take down the appendiceal. I used the 45 mm Endo LJ staple transection on the base of appendix. With double identified the base of appendix. Recheck and no active bleeding or leak from staplers. We remove appendix through the catheter bag. then re-inserted a Capellan trocar IN and connected to CO2 to create pneumoperitoneum again. Hemostat is obtained. We removed all trocars under direct vision no active bleeding from trocar site. Pneumoperitoneum was released. Close umbilical incision fascia layer by using 0 Vicryl [id number] x2. Closed subcutaneous layer by using 2-0 Vicryl interrupted. Close skin by using 4-0 Vicryl. Close another 5 mm trocar site the skin only by use of 4-0 Vicryl. Put the dressing on. Remove Julian catheter. Patient tolerated procedure well. All instrument needle sponge count correct x2 in the case. Patient was transferred to recovery room in stable condition. Specimen sent to pathology. After procedure I did talk to patient about the OR finding and the procedure we did. They und erstood. I attest to the content of the Intraoperative Record and any orders documented therein. Any exceptions are noted below.
[2023-05-19] MEDS: cefOXitin 2,000 MG in DEXTROSE 5 % MINI-B 50 ML IV SCH ×2 (03:06→09:26)
[2023-05-19 07:35] LABS: Basophils # (auto) 0.02 K/uL (0.00-0.20); Basophils % (auto) 0.3 %; Eosinophils # (auto) 0.03 K/uL (0.00-0.50); Eosinophils % (auto) 0.4 %; Hematocrit (blood only) 38.8 % (37.0-47.0); Hemoglobin 12.5 g/dl (12.0-16.0); Immature Granulocytes # (auto) 0.02 K/uL (0.01-0.20); Immature Granulocytes % (auto) 0.3 %; Lymphocytes # (auto) 1.47 K/uL (1.20-3.40); Lymphocytes % (auto) 21.9 %; Mean Corpuscular Hemoglobin 31.3 pg (25.0-34.0); Mean Corpuscular Hgb Conc 32.2 g/dL (32.0-36.0); Mean Corpuscular Volume 97.2 fL (80.0-100.0); Mean Platelet Volume 11.9 fL (9.4-12.4); Monocytes # (auto) 0.59 K/uL (0.11-0.59); Monocytes % (auto) 8.8 %; Neutrophils # (auto) 4.59 K/uL (1.40-6.50); Neutrophils % (auto) 68.3 %; Platelet Count 211 K/uL (130-400); RDW Coefficient of Variation 12.8 % (11.5-14.5); RDW Standard Deviation 46.1 fL (36.4-46.3); Red Blood Count 3.99 M/uL (4.20-5.40); White Blood Count 6.72 K/ul (4.8-10.8)
[2023-05-19] MEDS: LACTATED RINGER'S 1,000 ML IV SCH (09:58)
--- NOTE | 2023-05-19 11:29 | Surgery Progress Note ---
Date of Service May 19, 2023 Assessment & Plan (1) Acute appendicitis: Plan: Assessment: Patient is 62 years old female who presented to ED with 12-hour history right lower quadrant pain with nausea. CT scan diagnosis acute appendicitis. Plan: Based on patient history labs and the CT scan finding. I recommend to do a laparoscopy appendectomy possible open I did talk to patient about the benefit the risk and alternate of the procedure I indicated the risks may include but not limited such as a bleeding, infection, injury other organs, abscess, incisional hernia. patient understand, she agreed to proceed with surgery. patient signed informed consent. I answers all question. Pre-op IV antibiotic. 05/19/2023 11:27 AM F/U S/P laparoscopic appendectomy, POD 1 pt is doing fine, no significant abdominal pain, tolerated diet. Patient wants to go home today. I gave pt the postop care instruction. pt Understood. I answered all questions. follow-up me 2 weeks. [phone] Admission and Anticipated Discharge Date Admission Date: May 18, 2023 Subjective F/U S/P laparoscopic appendectomy, POD 1 pt is doing fine, no significant abdominal pain, tolerated diet, no nausea, no vomiting, no fever. Review of Systems Constitutional: as per Subjective / HPI Eyes: as per Subjective / HPI Respiratory: as per Subjective / HPI Cardiovascular: as per Subjective / HPI Gastrointestinal: as per Subjective / HPI Genitourinary: as per Subjective / HPI Neurologic: as per Subjective / HPI Psychiatric: as per Subjective / HPI Endocrine: as per Subjective / HPI Hematologic / Lymphatic: as per Subjective / HPI Physical Exam Constitutional: WD/WN, vitals as above Eyes: PERRL, conjunctivae normal, anicteric sclerae Neck: trachea midline, no thyromegaly Respiratory: normal respiratory effort, lungs clear to auscultation Cardiovascular: RRR, no murmur, no edema Gastrointestinal (Abdomen): soft, mild tenderness at incision sites, no rebound pain, all incisions intact, no redness, BS +. Musculoskeletal: no cyanosis or clubbing, extremities motor strength 5/5 Neurologic: patellar DTR's 2+ bilat, sensation intact Psychiatric: A+Ox3, euthymic affect Results & Data Vital Signs (Past 12 Hours) Vital Signs Temp Pulse Resp BP Pulse Ox O2 Del Method 05/19/23 07:48 36.8 C 67 16 119/75 97 Room Air Laboratory Results Lab Results 05/18/23 05/19/23 Range/Units 01:55 06:39 WBC 11.29 H 6.72 (4.8-10.8) K/ul RBC 4.54 3.99 L (4.20-5.40) M/uL Hgb 14.5 12.5 (12.0-16.0) g/dl Hct 44.0 38.8 (37.0-47.0) % MCV 96.9 97.2 (80.0-100.0) fL MCH 31.9 31.3 (25.0-34.0) pg MCHC 33.0 32.2 (32.0-36.0) g/dL RDW Std Deviation 44.4 46.1 (36.4-46.3) fL RDW Coeff of Lars 12.4 12.8 (11.5-14.5) % Plt Count 253 211 (130-400) K/uL MPV 11.8 11.9 (9.4-12.4) fL Immature Gran % (Auto) 0.3 0.3 % Neut % (Auto) 78.0 68.3 % Lymph % (Auto) 12.5 21.9 % Wetzel % (Auto) 8.1 8.8 % Eos % (Auto) 0.7 0.4 % Baso % (Auto) 0.4 0.3 % Neut # (Auto) 8.81 H 4.59 (1.40-6.50) K/uL Lymph # (Auto) 1.41 1.47 (1.20-3.40) K/uL Wetzel # (Auto) 0.92 H 0.59 (0.11-0.59) K/uL Eos # (Auto) 0.08 0.03 (0.00-0.50) K/uL Baso # (Auto) 0.04 0.02 (0.00-0.20) K/uL Immature Gran # (Auto) 0.03 0.02 (0.01-0.20) K/uL Sodium 141 (136-145) mmol/L Potassium 3.8 (3.5-5.1) mmol/L Chloride 106 (98-107) mmol/L Carbon Dioxide 29 (21-32) mmol/L Anion Gap 6 (3-11) BUN 14 (6-23) mg/dl Creatinine 0.80 (0.6-1.2) mg/dl Est Cr Clr Drug Dosing 69.8 ml/min Est GFR ( Amer) 90.9 ml/min Est GFR (Non-Af Amer) 78.5 ml/min BUN/Creatinine Ratio 17.5 (10-20) Glucose 92 (70-99(Fasting)) mg/dl Calcium 9.4 (8.6-10.3) mg/dl Total Bilirubin 0.4 (0.2-1.0) mg/dl AST 19 (13-39) U/L ALT 14 (7-52) U/L Alkaline Phosphatase 68 (34-104) U/L Total Protein 7.6 (6.0-8.3) gm/dl Albumin 4.6 (3.4-5.0) gm/dl Globulin 3.0 (2.5-4.0) gm/dl Albumin/Globulin Ratio 1.5 (0.9-2) Lipase 24 (11-82) U/L HCG, Qual Negative (Negative) Urine Color Yellow Urine Appearance Clear (Clear) Urine pH 7.5 (4.5-7.5) Ur Specific [place] 1.012 (1.000-1.030) Urine Protein Negative (Negative) Urine Glucose (UA) Negative (Negative) Urine Ketones Negative (Negative) Urine Blood 1+ H (Negative) Urine Nitrite Negative (Negative) Urine Bilirubin Negative (Negative) Urine Urobilinogen Negative (Negative) Ur Leukocyte Esterase 2+ H (Negative) Urine WBC (Auto) 5-10 H (0-5) /hpf Urine RBC (Auto) 5-10 H (0-4) /hpf U Hyaline Cast (Auto) 0 (0-5) /lpf U Epithel Cells (Auto) 10-20 H (0-5) /lpf Urine Bacteria (Auto) Negative (Negative)
--- NOTE | 2023-05-19 13:48 | Discharge Summary ---
Date of Service May 19, 2023 Admission HPI Per Admitting Provider pre-op Diagnosis-acute appendicitis, post-op Diagnosis-acute appendicitis, Discharge date 05/19/2023 operation- laparoscopic appendectomy. surgeon Lewis Marion MD, FACS patient is a 62 years old female prepped presented to ED with acute abdominal pain, patient had a CT scan diagnosis of acute appendicitis, I took patient to the OR, I did a laparoscopy appendectomy. Found the patient had acute appendicitis during the operation. Patient tolerated procedure well. Patient was a transfer to floor doing fine. no significant incisional pain, orabdominal pain. Tolerated diet. no nausea, no vomiting, no fever no chills.post op check WBC normal. Admission Exam (Per Admitting) Constitutional WD/WN, vitals as above Eyes PERRL, conjunctivae normal, anicteric sclerae Neck trachea midline, no thyromegaly Respiratory normal respiratory effort, lungs clear to auscultation Cardiovascular RRR, no murmur, no edema Gastrointestinal (Abdomen) soft, mild tenderness at incision sites, no rebound pain, no distend, all incisions intact, no redness, BS +. Musculoskeletal no cyanosis or clubbing, extremities motor strength 5/5 Neurologic patellar DTR's 2+ bilat, sensation intact Psychiatric A+Ox3, euthymic affect Discharge Data Consultations 05/18/23 04:49 ED Decision to Admit Stat Procedures Performed Operation Date: 05/18/23 05:30 Actual Procedures p Laparoscopic Appendectomy(Not Applicable) - Lewis Marion MD Hospital Course (1) Acute appendicitis: Assessment: Patient is 62 years old female who presented to ED with 12-hour history right lower quadrant pain with nausea. CT scan diagnosis acute appendicitis. Plan: Based on patient history labs and the CT scan finding. I recommend to do a laparoscopy appendectomy possible open I did talk to patient about the benefit the risk and alternate of the procedure I indicated the risks may include but not limited such as a bleeding, infection, injury other organs, abscess, incisional hernia. patient understand, she agreed to proceed with surgery. patient signed informed consent. I answers all question. Pre-op IV antibiotic. 05/19/2023 11:27 AM F/U S/P laparoscopic appendectomy, POD 1 pt is doing fine, no significant abdominal pain, tolerated diet. Patient wants to go home today. I gave pt the postop care instruction. pt Understood. I answered all questions. follow-up me 2 weeks. [phone]
== END 2023-05-19 12:27 | disposition home health service (06) ==
LOC: ED 01:34 → 3W 05:41 → OR 05:41 → INTOOBSV 07:19 → 3W 07:19